=== PATIENT | female | born 1965 | race Caucasian/White ===

== ENCOUNTER 2018-08-29 23:50 | Emergency (ER) | payer MEDICAID ==
[~2018-08-29] VITALS: Ht 152.4 cm; Wt 60.7 kg
[2018-08-30] MEDS ORDERED: SODIUM CHLORIDE 0.9% 1,000 ML IV ONE (09:33)
[2018-08-30] MEDS ORDERED: KETOROLAC 30MG/ML VIAL IV STA (09:33)
[2018-08-30] MEDS ORDERED: METOCLOPRAMIDE HCL 10MG/2ML VIAL IV ONE (09:45)
[2018-08-30 10:15] VITALS: BP 120/81
== END 2018-08-30 11:57 | disposition home or self-care (01) ==
LOC: ER 23:50
DX: R51 Headache (principal); R42 Dizziness and giddiness; R11.2 Nausea with vomiting, unspecified; E11.9 Type 2 diabetes mellitus without complications; Z87.891 Personal history of nicotine dependence; Z98.890 Other specified postprocedural states
CPT/HCPCS: 96361; 96374; 96375; 99283; J1885; J2765; J7030